=== PATIENT | female | born 1990 | race American Indian/Alaskan Native ===

== ENCOUNTER 2019-03-28 08:54 | Emergency (ER) | payer SELFPAY ==
[2019-03-28 08:59] VITALS: BP 133/66
[2019-03-28] MEDS ORDERED: FLUORESCEIN 1 MG STRIP OP ONE ×2 (09:32→09:35)
--- NOTE | 2019-03-28 09:33 | Emergency Department Report ---
[facility] Chief Complaint: Eye Problems Stated Complaint: LFT EYE INJURY/BURNING/PAIN Time Seen by Provider: 03/28/19 09:19 Side: Left Severity: moderate Symptoms: Yes Eye Redness, Yes Eye Pain, No Mucous Drainage, No Purulent Drainage, No Blurred Vision, No Preceding URI, No H/O Allergic Rhinitis, No Contact Lens Use, No Trauma, No Fever, No Headache Other History: Is a 28-year-old female who presents to ED complaining of left eye irritation and burning tearing for the past 2 days. Patient states that one of her eyelashes got in her eye a couple days ago. Patient states that she thought she got the eyelash out. Denies any other trauma to the eye. Patient is complaining of red irritation and redness to the eye. She complains of pain with closing and opening the eye. ED Review of Systems ROS: Stated complaint: LFT EYE INJURY/BURNING/PAIN Other details as noted in HPI Comment: All other systems reviewed and negative ED Past Medical Hx - Past Medical History Previous Medical History?: No - Surgical History Past Surgical History?: No - Social History Smoking Status: Never Smoker Substance Use Type: Marijuana - Medications Home Medications: Home Medications Medication Instructions Recorded Confirmed Last Taken Type Ibuprofen [Motrin] 600 mg PO Q8H PRN #12 tablet 05/11/18 Unknown Rx Ketorolac Tromethamine [Ketorolac 1 applic OP TID #5 ml 03/28/19 Unknown Rx Tromethamine 0.4% opth soln] Tobramycin 0.3% [Tobrex] 1 - 2 drop OP Q8HR #1 bottle 03/28/[address] [facility] Exam - Exam General: Vital signs noted. No distress. Alert and acting appropriately. Eye Exam: Left Injection, Left Fluorescein Uptake (at 7 o clock), Both EOMI, Neither Chemosis, Neither Abnormal Pupil, Neither Eye Foreign Body, Neither Lid Foreign Body, Neither Mucous Discharge, Neither Purulent Discharge HEENT: No Nasal Congestion, No Pharyngeal Erythema Remainder of HEENT: Normal Lungs: Yes Clear Lung Sounds, Yes Good Air Exchange, No Wheezes, No Stridor, No Cough, No Nasal Flaring, No Retractions, No Use of Accessory Muscles Exam: Vision is intact bilaterally. PERRLA. Corneal abrasion noted to the left eye at 7:00. Normal with no cellulitis or redness or swelling ED Course Vital Signs 03/28/19 08:55 Temperature 98.8 F Pulse Rate 90 Respiratory 20 Rate Blood Pressure 133/66 O2 Sat by Pulse 100 Oximetry ED Medical Decision Making - Medical Decision Making 28-year-old female presents with left eye conjunctivitis from corneal abrasion ED course: dick lamp test shows small corneal abrasion at 7:00. discussed this with the patient. Discussed the patient will be going home on antibiotic eyedrops to apply 4-5 times a day. Skull significant eye patch from [employer] and apply to left eye. I discussed the patient we'll give her mumps developer referral if needed he'll follow-up if symptoms persist. I discussed the patient is new or worsening symptoms to return to ED immediately Patient's vital signs are stable he's in no distress. Patient is vision is intact, visual acuity test performed, within normal limits. Discussed the patient to follow up with her primary care physician in 3-5 days. Critical care attestation.: If time is entered above; I have spent that time in minutes in the direct care of this critically ill patient, excluding procedure time. ED Disposition Clinical Impression: Corneal abrasion, left, Acute conjunctivitis of left eye Disposition: DC-01 TO HOME OR SELFCARE Is pt being admited?: No Does the pt Need Aspirin: No Condition: Stable Instructions: Corneal Abrasion (ED) Additional Instructions: Make sure to follow up with the primary care physician as discussed. Take all your medications as you've been prescribed. If you have any worsening symptoms or develop new symptoms please return to ED immediately. Prescriptions: Ketorolac Tromethamine [Ketorolac Tromethamine 0.4% opth soln] 1 applic OP TID #5 ml Tobramycin 0.3% [Tobrex] 1 - 2 drop OP Q8HR #1 bottle Referrals: PRIMARY CAREMD [Primary Care Provider] - 3-5 Days MARIAELENA KENNEY MD [Staff Physician] - 3-5 Days Forms: Work/School Release Form(ED) Time of Disposition: 10:31
== END 2019-03-28 10:44 | disposition home or self-care (01) ==
LOC: ED 08:54
DX: S20.312A Abrasion of left front wall of thorax, initial encounter (principal); X58.XXXA Exposure to other specified factors, initial encounter; Y93.89 Activity, other specified; Y92.89 Other specified places as the place of occurrence of the external cause; Y99.8 Other external cause status
CPT/HCPCS: 99282

== ENCOUNTER 2019-04-05 11:35 | Emergency (ER) | payer SELFPAY ==
[2019-04-05 11:42] VITALS: BP 129/69
--- NOTE | 2019-04-05 11:43 | Event Note ---
ED Screening Note Date of service: 04/05/19 Time: 11:40 ED Screening Note: 28 y o returns to ED after dx with left corneal abrasion stating worsening pain and now right eye pain and photosensitive cc of dizziness with standing This initial assessment/diagnostic orders/clinical plan/treatment(s) is/are subject to change based on patients health status, clinical progression and re- assessment by fellow clinical providers in the ED. Further treatment and workup at subsequent clinical providers discretion. Patient/guardian urged not to elope from the ED as their condition may be serious if not clinically assessed and managed. Initial orders include: EYE exam Eye kit Acc eval
--- NOTE | 2019-04-05 11:44 | Emergency Department Report ---
Eye Injury/Foreign Body - HPI Eye Location: Left Tetanus Status: Up to Date Eye Symptoms: Eye Pain: No, Blurred Vision: No, Eye Redness: No, Grinding/Hammering Metal: No, Used Eye Protection: No, Contact Lens Use: No, Recalls Injury: No, Photophobia: No Other History: SEEN HERE 9 DAYS AGO FOR SAME. L EYE TEARING. SHE HAS TOBRA AND KETOROLAC DROPS WITH HER. SHE PATCHED HER L EYE. SHE DID NOT FOLLOW UP WITH MD BECAUSE THEY WANTED 125$ SO SHE CAME TO ER. ED Review of Systems ROS: Stated complaint: LFT EYE DUDLEY/PAIN Other details as noted in HPI Comment: All other systems reviewed and negative ED Past Medical Hx - Past Medical History Previous Medical History?: No - Surgical History Past Surgical History?: No - Social History Smoking Status: Never Smoker - Medications Home Medications: Home Medications Medication Instructions Recorded Confirmed Last Taken Type Ibuprofen [Motrin] 600 mg PO Q8H PRN #12 tablet 05/11/18 Unknown Rx Ketorolac Tromethamine [Ketorolac 1 applic OP TID #5 ml 03/28/19 Unknown Rx Tromethamine 0.4% opth soln] Tobramycin 0.3% [Tobrex] 1 - 2 drop OP Q8HR #1 bottle 03/28/19 Unknown Rx Eye Injury Exam - Exam General: Vital signs noted. No distress. Alert and acting appropriately. ED Course Vital Signs 04/05/19 11:40 Temperature 99.1 F Pulse Rate 84 Respiratory 20 Rate Blood Pressure 129/69 [Right] O2 Sat by Pulse 100 Oximetry ED Medical Decision Making - Medical Decision Making PT DID NOT STAY - SHE WAS UPSET THAT WE GAVE HER EYE DOCTOR THAT WILL CHARGE HER 125$. I EXPLAINED TO HER SHE HAS [facility] AND NEEDS TO SEE EYE MD THIS UPSET HER AND SHE LEFT NO NEW EYE TRAUMA/INJURY SHE TOLD ME SHE GOT 2 EYES LASHES IN HER EYE AND THATS WHAT STARTED THIS 9 DAYS AGO Critical care attestation.: If time is entered above; I have spent that time in minutes in the direct care of this critically ill patient, excluding procedure time. ED Disposition Clinical Impression: Corneal abrasion, left Disposition: Z-07 MED SCREENING EXAM-LEFT Is pt being admited?: No Does the pt Need Aspirin: No Condition: Stable Time of Disposition: 11:52
== END 2019-04-05 11:50 | disposition left against medical advice (07) ==
LOC: ED 11:35
DX: H92.02 Otalgia, left ear (principal); Z53.21 Procedure and treatment not carried out due to patient leaving prior to being seen by health care provider